=== PATIENT | male | born 1945 | race Caucasian/White ===

== ENCOUNTER → 2017-06-25 | Outpatient (CLI) | payer MEDICARE, OTHER ==
--- NOTE | 2017-06-26 08:50 | RADIOLOGY REPORT (SQ) ---
EXAM DESCRIPTION: PET CT SKULL/THIGH COMPLETED DATE/TIME: 06/25/2017 7:25 pm REASON FOR STUDY: LUNG/RENAL CANCER R91.1 SOLITARY PULMONARY NODULE R19.09 OTHER INTRA-ABDOMINAL A ND PELVIC SWELLING, MASS AND L COMPARISON: Report [facility] CT abdomen pelvis 03/29/[address] abdomen pelvis [facility] diagnostic imaging 03/01/2017 RADIONUCLIDE AND DOSE: 12.2 mCi F18 FDG The route of agent administration: Intravenous FASTING BLOOD SUGAR: 97 mg/dl CONTRAST TYPE AND DOSE: No CT contrast given. TECHNIQUE: Blood glucose level was verified. Above dose of FDG was injected intravenously. 2-D seg mented attenuation correction images were obtained from the base of the skull to the midthighs. Nonc ontrast CT images were obtained for attenuation correction and fusion with emission images. CT image s were performed without oral or intravenous contrast and are not sensitive for parenchymal lesions. A series of overlapping emission PET images were obtained. Images reviewed and manipulated at [facility] work station by the radiologist. Images stored on PACS. LIMITATIONS: None. FINDINGS: HEAD AND NECK: No areas of abnormal metabolic activity in the soft tissues of the head and neck. CHEST: Conglomerate density in the left posterior costophrenic sulcus 4 x 2 cm in size with SUV of 2. 0. 1 cm nodule left lateral costophrenic sulcus SUV 1.1. Patchy ill-defined bilateral lung parenchymal alveolar and interstitial infiltrates diffusely, with l ow level metabolic activity, SUV of 1.5. ABDOMEN AND PELVIS: No areas of abnormal metabolic activity in the abdomen or pelvis. Expected physi ologic activity is present in the genitourinary system and bowel. PROXIMAL LOWER EXTREMITIES: No areas of abnormal metabolic activity in the soft tissues of the lower extremities. BONES: Multiple ill defined lytic areas in the spine are present at multiple vertebral body levels as follows: T5 vertebral body SUV 3.7 T12 vertebral body SUV 4 L1 vertebral body SUV 4.2 L2 vertebral body SUV 5.2 Left sacrum SUV 2.7 Right sacrum SUV 3.6 Right ischium SUV 4.[address] FINDINGS: Old healing right lateral 8th rib fracture. Cisterna Chyli right retrocrural region 2 cm in size, non metabolic. Right midpole 3 x 2 cm cortical cysts. Post cholecystectomy. Distal esophageal wall thickening. Heavy atherosclerotic arterial vascular calcification throughout the neck chest abdomen and pelvis and coronary arteries. Colonic diverticulosis. OTHER: Liver background activity 2.0 SUV. Blood pool background activity 1.5 SUV IMPRESSION: Vertebral body marrow increased uptake as above worrisome for either myeloma or metastat ic disease Pulmonary infiltrates with low level metabolic activity. No associated mediastinal or hilar adenopat hy TECHNICAL DOCUMENTATION: JOB ID: [id number] [employer]- All Rights Reserved
== END ==
LOC: RAD 15:56
PROVIDERS: ATTEND Family Medicine
DX: R91.1 Solitary pulmonary nodule (principal); R91.8 Other nonspecific abnormal finding of lung field; R19.09 Other intra-abdominal and pelvic swelling, mass and lump
CPT/HCPCS: 78815; A9552

== ENCOUNTER 2017-07-10 09:21 | Day surgery (SDC) | payer MEDICARE, OTHER ==
[2017-07-10 10:31] LABS: HEMATOCRIT 35.2 % (37.9-51.0); HEMOGLOBIN 11.7 g/dL (13.5-17.0); MEAN CORPUSCULAR HEMOGLOBIN 27.3 pg (27.0-33.4); MEAN CORPUSCULAR HGB CONC 33.2 g/dL (32.0-36.0); MEAN CORPUSCULAR VOLUME 82 fl (80-97); PLATELET COUNT 170 10^3/uL (150-450); RED BLOOD COUNT 4.28 10^6/uL (4.35-5.55); RED CELL DISTRIBUTION WIDTH 15.2 % (11.5-14.0); WHITE BLOOD COUNT 6.3 10^3/uL (4.0-10.5)
[2017-07-10 10:38] LABS: INTERNATIONAL RATION (INR) 1.07; PROTHROMBIN TIME 14.6 SEC (11.4-15.4)
[2017-07-10 10:39] LABS: PARTIAL THROMBOPLASTIN TIME 30.3 SEC (23.5-35.8)
[2017-07-10 10:55] LABS: BLOOD UREA NITROGEN 37 mg/dL (7-20)
[2017-07-10] MEDS ORDERED: LIDOCAINE 1% INJ-PF (10 MG/ML) 30 ML SDV ONE (11:16)
[2017-07-10] MEDS ORDERED: FENTANYL CITRATE INJ/PF 100 MCG/2 ML AMPUL ONE (11:20)
[2017-07-10] MEDS ORDERED: MIDAZOLAM 2 MG/2 ML INJ ONE (11:20)
[2017-07-10 15:13] VITALS: BP 141/83
--- NOTE | 2017-07-10 17:31 | RADIOLOGY REPORT (SQ) ---
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 IMPRESSION: Please see combined report for performance of procedure and radiologic supervision and i nterpretation.
--- NOTE | 2017-07-10 20:03 | RADIOLOGY REPORT (SQ) ---
EXAM DESCRIPTION: CT BIOPSY BONE DEEP COMPLETED DATE/TIME: 07/10/2017 12:15 pm REASON FOR STUDY: LYTIC LESION R93.7 ABNORMAL FINDINGS ON DIAGNOSTIC IMAGING OF PRT MS CHARBEL Z79.01 PRISON (CURRENT) USE OF ANTICOAGULANTS COMPARISON: PET-CT 06/25/2017 TECHNIQUE: CT guided biopsy of the L1 vertebral body performed with conscious sedation. CT Fluoroscopy Time: 12.[address] scanners at this facility use dose modulation, iterative reconstruction, and/or weight based d osing when appropriate to reduce radiation dose to as low as reasonably achievable (ALARA). [facility]: Dose Right [facility]: CareDose [facility]: Dose Right [facility]: Teradose 4D [facility]: Cloud9 IDE RADIATION DOSE: CT Rad equipment meets quality standard of care and radiation dose reduction techni ques were employed. CTDIvol: 4.0 - 4.7 mGy. DLP: 199 mGy-cm.mGy. FINDINGS: The procedure was discussed with the patient and the patient agreed to the procedure. Prio r to the procedure, a time out was performed to verify the patient's identity and planned procedure. IV sedation was administered and physician direction by the registered nurse using 0.5 milligrams of Versed and 25 micrograms of fentanyl. Physiologic monitoring was provided before, during, and after s edation. The total sedation time was 30 minutes. Documentation face to face time, the performing proceduralist, spent monitoring the patient: [address] scanning was performed to localize the percutaneous site for the biopsy approach. After sterile skin prep and local lidocaine for skin and deep tissue anesthesia, a coaxial 18 gauge b iopsy needle was used to obtain 4 cores of tissue. No immediate complications. The biopsy tissue was submitted to the lab in formalin. Pathology is pending at the time of dictation. IMPRESSION: CT GUIDED BIOPSY OF THE L1 VERTEBRAL BODY PERFORMED WITHOUT IMMEDIATE COMPLICATION. PAT HOLOGY PENDING. IV conscious sedation COMMENT: Quality ID [id number]: Final reports for procedures using fluoroscopy that document radiation exp osure indices, or exposure time and number of fluorographic images (if radiation exposure indices are not available) Patient medication list reviewed: Yes- Quality ID# [id number]:Eligible professional attests to documenting i n the medical record they obtained, updated, or reviewed the patient's current medications.. TECHNICAL DOCUMENTATION: JOB ID: [id number] Quality ID# [id number]: Final reports with documentation of one or more dose reduction techniques (e.g., Aut omated exposure control, adjustment of the mA and/or kV according to patient size, use of iterative r econstruction technique) 2010 [employer] All Rights Reserved
== END 2017-07-10 14:30 | disposition home or self-care (01) ==
LOC: RAD 09:21
PROVIDERS: ATTEND Internal Medicine Hematology & Oncology
PROC: 0QB03ZX Excision of Lumbar Vertebra, Percutaneous Approach, Diagnostic (ICD-10-PCS; principal; 2017-07-10)
DX: M51.36 Other intervertebral disc degeneration, lumbar region (principal); R93.7 Abnormal findings on diagnostic imaging of other parts of musculoskeletal system; Z79.01 Long term (current) use of anticoagulants
CPT/HCPCS: 36415; 84520; 82565; 85027; 85610; 85730; 88305 ×2; 77012; 20225; J2250; J3010; J3490

== ENCOUNTER → 2017-07-31 | Day surgery (SDC) | payer MEDICARE, OTHER ==
[~2017-07-31] MED LIST: CEFAZOLIN 1 GM/D5W RTU 1 GM/50 ML RTUPB IV PRN; DEXTROSE 5%-1/2 NORMAL SALINE 1,000 ML IV PRN; DIAZEPAM 5 MG TABLET PO PRN; OXYCODONE-ACETAMINOPHEN 5-325 MG TABLET PO PRN
[2017-07-31 15:05] VITALS: BP 122/77
== END ==
LOC: CCL 11:45
PROVIDERS: ATTEND Surgery
DX: R69 Illness, unspecified (principal)